=== PATIENT | male | born 1975 | race Caucasian/White ===

== ENCOUNTER → 2017-02-22 | Outpatient (CLI) | payer OTHER ==
[2017-02-22 10:25] LABS: HEMOGLOBIN 16.2 gm/dl (14.0-17.5); RED BLOOD COUNT 5.12 M/UL (4.20-5.50); WHITE BLOOD COUNT 8.4 K/UL (4.5-11.0)
[2017-02-22 11:19] LABS: BUN/CREATININE RATIO 15 (0-10)
== END ==
LOC: OPSV2 08:30 → EDSTATUS 08:30 → OPSV2 09:09
PROVIDERS: Orthopaedic Surgery
DX: Z01.812 Encounter for preprocedural laboratory examination (principal); M16.52 Unilateral post-traumatic osteoarthritis, left hip
CPT/HCPCS: 36415; 80048; 81001; 85025; 87081; 93005